=== PATIENT | female | born 1980 | race Caucasian/White ===

== ENCOUNTER 2020-12-10 09:12 | Outpatient (CLI) | payer BC, SELFPAY ==
--- NOTE | ~2020-12-10 | MM_ITS ---
EXAMINATION: MM screening bruna BI w mack HISTORY: Screening mammogram TECHNIQUE: Craniocaudal and mediolateral oblique 3-D tomosynthesis images were obtained and synthetic 2-D images were generated. CAD analysis was submitted and interpreted. COMPARISON: No prior mammogram is available for comparison at this institution. BREAST PARENCHYMAL COMPOSITION: There are scattered areas of fibroglandular density. FINDINGS: There is no evidence of suspicious mass, calcification, or architectural distortion to sugg est malignancy in either breast. There has been no suspicious interval change. IMPRESSION: 1. No mammographic evidence of malignancy. 2. Recommend routine screening mammography in one year. BI-RADS Category 1: Negative Reviewed, dictated and finalized at location A.
== END 2020-12-10 09:13 | disposition home or self-care (01) ==
LOC: ANHIMG 09:13
PROVIDERS: PCP Family Medicine; Visit Provider Obstetrics & Gynecology
DX: Z12.31 Encounter for screening mammogram for malignant neoplasm of breast (principal)
CPT/HCPCS: 77063; 77067

== ENCOUNTER 2021-09-20 13:17 | Outpatient (CLI) | payer OTHER, SELFPAY ==
--- NOTE | 2021-09-20 13:25 | ECHO_ITS ---
Patient Info Name: Jayna Martinez Age: 41 years : 1980 Gender: Female Ht: 68 in Wt: 148 lbs BSA: 1.80 m2 HR: 70 bpm BP: 110 / 68 mmHg Technical Quality: Good Exam Date: 09/20/2021 1:37 PM Exam Location: [facility] Patient Status: Outpatient Admit Date: 09/20/2021 Staff Ordering Physician: John Barraza DO Wirer Helper: Sierra Suh RDCS Attending Provider: John Barraza DO Referring Physician: Madi FRANCIS; Exam Type: CA echo doppler color flow Study Info Indications R00.2 - Palpitations Complete two-dimensional, color flow and Doppler transthoracic echocardiogram is performed. Summary 1. Complete two-dimensional, color flow and Doppler transthoracic echocardiogram is performed. 2. Left ventricular chamber dimension is normal. 3. Left ventricular systolic function is normal, estimated at 60-65%. 4. The left ventricular diastolic function is normal. 5. E/e' 6 is not elevated. 6. Global longitudinal strain is normal at -18.3%. 7. No pulmonary hypertension, estimated pulmonary arterial systolic pressure is 13 mmHg. Left Ventricle E/e' 6 is not elevated. Global longitudinal strain is normal at -18.3%. Left ventricular chamber dimension is normal. Left ventricular systolic function is normal, estimated at 60-65%. The left ventricular diastolic function is normal. Right Ventricle Right ventricular chamber dimension is normal. Right ventricular systolic function is normal. Left Atria Left atrial chamber dimension is normal. Right Atria Right atrial chamber dimension is normal. Aortic Valve The aortic valve is trileaflet. There is no aortic valve stenosis. There is no aortic valve regurgitation. Mitral Valve There is no mitral valve stenosis. There is no mitral valve regurgitation. Tricuspid Valve There is no tricuspid valve regurgitation. No pulmonary hypertension, estimated pulmonary arterial systolic pressure is 13 mmHg. Pericardium/Pleural There is no pericardial effusion. Inferior Vena Cava Normal inferior vena cava with >50% collapse upon inspiration consistent with normal right atrial pressure, 5 mmHg. Aorta The aortic root size at the sinus of Valsalva is normal. Left Ventricular Outflow Tract Name Value Normal LVOT 2D LVOT Diameter 2.0 cm LVOT Doppler LVOT Peak Gradient 4 mmHg LVOT Mean Gradient 3 mmHg LVOT VTI 19 cm LVOT VTI/AV VTI Ratio 1.1 LVOT Stroke Volume 57 ml LVOT CO 4.5 l/min LVOT CI 2.5 l/min/m2 Pulmonic Valve Name Value Normal RVOT Doppler RVOT Peak Gradient 1 mmHg PV Doppler
== END 2021-09-20 13:18 | disposition home or self-care (01) ==
LOC: ANHCARD 13:19
PROVIDERS: PCP Family Medicine; Visit Provider Internal Medicine Cardiovascular Disease
DX: R00.2 Palpitations (principal)
CPT/HCPCS: 93306

== ENCOUNTER 2021-11-03 07:33 | Outpatient (CLI) | payer OTHER, SELFPAY ==
--- NOTE | 2021-11-07 13:13 | WPDHOMESLEEP ---
Sleep Study - Home Unattended Date of Study: 11/03/21 Ordering Provider: John Barraza DO Interpreting Provider: China Herrmann DO Home Sleep Study Type: Watch PAT Height: 1.73 m Weight: 68.039 kg Body Mass Index: 22.8 Neck Circumference (inches): 13.5 Bath: 2 Reason for Sleep Study Sleep-onset and sleep-maintenance insomnia Sleep History The patient is a 41-year-old female with history of atrial fibrillation and palpitations that had a HSAT ordered by her engraver rubber for sleep disturbances. the patient states she has a difficult time falling asleep. When she is able to fall asleep, she can only sleep for a few hours. The patient denies awakening from sleep short of breath. She occasionally awakens at night with heartburn, belching or cough. She occasionally snores but it is never loud others complain. She constantly has trouble sleeping when she has a cold. She denies waking up gasping for air throughout the night. She denies having breathing problems at night observed by herself or others. She rarely sweats excessively at night. He frequently notices heart palpitations or irregular heartbeats during the night. He denies falling asleep during the day while driving. She denies having trouble at school or work due to sleepiness. She denies cataplexy. She will rarely feels unable to move when waking or falling asleep. She occasionally experiences vivid dreamlike scenes upon awakening asleep. She occasionally has nightmares. She occasionally has thoughts racing through mind. She rarely feels sad or depressed. She rarely has anxiety. She denies noticing parts of her body jerk. She denies kicking during the night. She denies having crawling and aching feelings in her legs as well as leg pain during the night. she denies grinding her teeth during sleep awakening with morning jaw pain. She denies being bothered by pain during the day and being awakened by pain during the night. She denies waking up feeling stiff in the morning with sore achy muscles. She occasionally wakes up with pain in the neck, spine and other joints. The patient states that her bedtime on both the weekdays and weekends varies. It typically takes her 2 hours to fall asleep on days that she does not work. On work days, she can fall asleep within 15-30 minutes. She wakes up 4-5 times throughout the night to use the restroom. She can fall back asleep within 20 minutes. On her work days, she will sleep from 8:30 a.m. to 3:00 p.m.. On her off days, she will sleep from 10:00 p.m. to 8:00 a.m.. She typically gets 4 to 5-1/2 hours of sleep per night. She will stay in bed for 20 minutes after waking up in the morning. She currently lives alone. 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 He does not consume any caffeinated beverages within 2 hours of bedtime. She does not engage in physical exercise before bedtime. She does not read or watch television before falling asleep. She will take naps in the afternoon or the evening they are refreshing. She does drink diet soda throughout the day. She denies tobacco, alcohol recreational drug use. [facility] Past Medical History Medical History Allergic rhinitis due to pollen Anemia Arthritis History of atrial fibrillation Palpitations with regular cardiac rhythm Scoliosis SVT (supraventricular tachycardia) Surgical History Surgical History H/O colectomy History of cardiac radiofrequency ablation 2019 History of cholecystectomy (~2010) Normal colonoscopy [place] teeth removed Family History Family History Mother Hypertension Family history of coronary artery disease Family history of glaucoma Family history of elevated blood lipids Family history of diabetes mellitus in first degree relative D
[2021-11-07 13:16] VITALS: BMI 22.8
== END 2021-11-04 09:58 | disposition home or self-care (01) ==
LOC: ANHCSM 07:34
PROVIDERS: PCP Family Medicine; Visit Provider Internal Medicine Cardiovascular Disease
DX: G47.10 Hypersomnia, unspecified (principal)
CPT/HCPCS: 95800

== ENCOUNTER 2021-12-19 14:03 | Outpatient (CLI) | payer OTHER, SELFPAY ==
--- NOTE | ~2021-12-19 | XR_ITS ---
EXAM: XR cervical spine 4-5V HISTORY: M54.2 - Cervicalgia COMPARISON: None available FINDINGS: Craniocervical association and atlantoaxial joint are normal. No prevertebral soft tissue swelling. Normal vertebral body heights. Very mild multilevel disc space narrowing in the lower cervi paty spine. Reversed lordosis as can be seen with muscle spasm or positioning, otherwise normal verteb ral body alignment. Normal facets and posterior elements. IMPRESSION: Neck muscle spasm versus positional artifact. Minimal degenerative disc disease in the lower cervical spine. Reviewed, dictated and finalized at location K.
--- NOTE | ~2021-12-19 | XR_ITS ---
EXAM: XR lumbar spine min 4V HISTORY: M54.9 - Dorsalgia, unspecified COMPARISON: None available FINDINGS: 5 nonrib-bearing lumbar-type vertebral bodies. Pedicles intact. Normal vertebral body alig nment. Vertebral body heights preserved. Disc spaces maintained. Normal facets and posterior elements . Cholecystectomy clips. Normal SI joints. IMPRESSION: Normal lumbar spine radiograph findings. Reviewed, dictated and finalized at location K.
== END 2021-12-19 14:04 | disposition home or self-care (01) ==
PROVIDERS: PCP Family Medicine; Visit Provider Physician Assistant
DX: M47.812 Spondylosis without myelopathy or radiculopathy, cervical region (principal)
CPT/HCPCS: 72050; 72110

== ENCOUNTER 2021-12-29 06:33 | Outpatient (CLI) | payer OTHER, SELFPAY ==
[2021-12-29 07:44] LABS: Alanine Aminotransferase 13 U/L (4-35); Albumin Level 4.8 g/dL (3.5-5.1); Alkaline Phosphatase 51 U/L (38-126); Anion Gap 8 mmol/L (8-16); Aspartate Amino Transferase 22 U/L (14-36); Bilirubin,Total 0.7 mg/dL (0.2-1.3); Blood Urea Nitrogen 11 mg/dL (7-17); Carbon Dioxide 25 mmol/L (22-30); Chloride 104 mmol/L (98-107); Cholesterol 146 mg/dL (0-200); Estimated Glomerular Filt Rate > 60; Glucose 99 mg/dL (65-110); HDL Direct 92 mg/dL; Potassium 3.9 mmol/L (3.4-5.0); Sodium 137 mmol/L (137-145); Triglycerides < 30 mg/dL (<150)
[2021-12-29 08:26] LABS: LDL Cholesterol Direct < 30 mg/dL
[2022-01-01 11:55] LABS: Vitamin D 1,25 (OH)2 Total 50 pg/mL (18-72); Vitamin D2 1,25 (OH)2 <8 pg/mL; Vitamin D3 1,25 (OH)2 50 pg/mL
== END 2021-12-29 06:34 | disposition home or self-care (01) ==
LOC: ANHLAB 06:36
PROVIDERS: PCP Family Medicine; Visit Provider Physician Assistant
DX: E55.9 Vitamin D deficiency, unspecified (principal); Z13.1 Encounter for screening for diabetes mellitus; Z00.00 Encounter for general adult medical examination without abnormal findings; Z13.220 Encounter for screening for lipoid disorders
CPT/HCPCS: 36415; 80053; 80061; 82652

== ENCOUNTER 2022-10-13 09:25 | Outpatient (CLI) | payer OTHER, SELFPAY ==
[2022-10-13 10:10] LABS: Hematocrit 41.1 % (37.0-47.0); Hemoglobin 13.4 g/dL (12.0-15.0); Mean Corpuscular HGB Conc 32.6 g/dl (32-36); Mean Corpuscular Hemoglobin 29.3 pg (26-34); Mean Corpuscular Volume 89.7 fl (80-100); Mean Platelet Volume 11.6 fl (7.4-10.4); Platelet Count Result 266 k/mm3 (150-375); Red Blood Count 4.58 M/mm3 (4.2-5.4); Red Cell Distribution Width 13.3 % (11.5-14.5); White Blood Count 7.8 K/mm3 (4.5-10.0)
[2022-10-13 10:22] LABS: Alanine Aminotransferase 18 U/L (6-35); Albumin Level 4.4 g/dL (3.5-5.1); Alkaline Phosphatase 47 U/L (38-126); Anion Gap 5 mmol/L (8-16); Aspartate Amino Transferase 21 U/L (14-36); Bilirubin,Total 0.6 mg/dL (0.2-1.3); Blood Urea Nitrogen 11 mg/dL (7-17); Calcium 8.6 mg/dL (8.4-10.2); Carbon Dioxide 29 mmol/L (22-30); Chloride 104 mmol/L (98-107); Estimated Glomerular Filt Rate > 60; Glucose 106 mg/dL (65-110); Potassium 3.8 mmol/L (3.4-5.0); Sodium 138 mmol/L (137-145)
[2022-10-13 11:14] LABS: Free T4 Free Thyroxine 1.18 ng/mL (0.78-2.19)
[2022-10-18 15:33] LABS: Vitamin D 1,25 (OH)2 Total 49 pg/mL (18-72); Vitamin D2 1,25 (OH)2 <8 pg/mL; Vitamin D3 1,25 (OH)2 49 pg/mL
== END 2022-10-13 09:26 | disposition home or self-care (01) ==
LOC: ANHLAB 09:28
PROVIDERS: PCP Family Medicine; Visit Provider Physician Assistant
DX: E55.9 Vitamin D deficiency, unspecified (principal); Z13.1 Encounter for screening for diabetes mellitus; R53.83 Other fatigue; E53.8 Deficiency of other specified B group vitamins; D64.9 Anemia, unspecified
CPT/HCPCS: 36415; 80053; 82607; 82652; 84439; 84443; 85027

== ENCOUNTER 2023-10-25 16:06 | Outpatient (CLI) | payer OTHER, SELFPAY ==
--- NOTE | ~2023-10-25 | XR_ITS ---
EXAMINATION: XR abdomen/kub 1V DATE: 10/25/2023 16:19 INDICATION: Unspecified abdominal pain. TECHNIQUE: A supine view of the abdomen on 2 radiographs was obtained. COMPARISON: CT abdomen and pelvis 04/20/2010 FINDINGS: There are no dilated loops of bowel. There is a small volume of stool in the colon. Surgica l clips in the right upper quadrant are likely from cholecystectomy. There is a phlebolith in left pe lvis. IMPRESSION: 1. Nonobstructive bowel gas pattern. Reviewed, dictated and finalized at location E. PING MACHINE OPERATOR
[2023-10-25 16:42] LABS: Hematocrit 39.2 % (37.0-47.0); Hemoglobin 12.6 g/dL (12.0-15.0); Mean Corpuscular HGB Conc 32.1 g/dl (32-36); Mean Corpuscular Volume 90.3 fl (80-100); Mean Platelet Volume 11.1 fl (7.4-10.4); Platelet Count Result 276 k/mm3 (150-375); Red Blood Count 4.34 M/mm3 (4.2-5.4); Red Cell Distribution Width 12.8 % (11.5-14.5); White Blood Count 10.3 K/mm3 (4.5-10.0)
[2023-10-25 17:40] LABS: Alanine Aminotransferase 12 U/L (6-35); Albumin Level 4.1 g/dL (3.5-5.1); Alkaline Phosphatase 47 U/L (38-126); Anion Gap 7 mmol/L (8-16); Aspartate Amino Transferase 26 U/L (14-36); Bilirubin,Total 0.3 mg/dL (0.2-1.3); Blood Urea Nitrogen 10 mg/dL (7-17); Calcium 8.9 mg/dL (8.4-10.2); Carbon Dioxide 27 mmol/L (22-30); Chloride 102 mmol/L (98-107); Estimated Glomerular Filt Rate > 60; Glucose 112 mg/dL (65-110); Lipase 90 U/L (23-300); Potassium 3.6 mmol/L (3.4-5.0); Sodium 136 mmol/L (137-145)
[2023-10-25 18:27] LABS: Free T4 Free Thyroxine 1.04 ng/mL (0.78-2.19)
== END 2023-10-25 16:07 | disposition home or self-care (01) ==
LOC: ANHIMG 16:09
PROVIDERS: PCP Family Medicine; Visit Provider Physician Assistant
DX: R10.9 Unspecified abdominal pain (principal); D64.9 Anemia, unspecified; Z13.1 Encounter for screening for diabetes mellitus; R53.83 Other fatigue
CPT/HCPCS: 36415; 74018; 80053; 83690; 84439; 84443; 85027

== ENCOUNTER 2024-04-29 12:14 | Outpatient (CLI) | payer OTHER, SELFPAY ==
--- NOTE | ~2024-04-29 | XR_ITS ---
EXAMINATION: XR lumbar spine min 4V DATE: 04/29/2024 12:36 INDICATION: Dorsalgia. TECHNIQUE: 5 views of lumbar spine were obtained. COMPARISON: Lumbar spine radiographs 12/19/21 FINDINGS: There is 9 degrees levocurvature of thoracolumbar spine. Vertebral body heights are normal. Intervertebral disc heights are normal. The facet joints are unremarkable. Surgical clips in the rig ht upper quadrant are likely from cholecystectomy. IMPRESSION: 1. Thoracolumbar levocurvature. Reviewed, dictated and finalized at location A.
== END 2024-04-29 12:15 | disposition home or self-care (01) ==
LOC: ANHIMG 12:16
PROVIDERS: PCP Family Medicine; Visit Provider Physician Assistant Medical
DX: M54.9 Dorsalgia, unspecified (principal); M43.9 Deforming dorsopathy, unspecified
CPT/HCPCS: 72110

== ENCOUNTER 2024-08-07 07:32 | Outpatient (CLI) | payer BC, SELFPAY ==
[2024-08-07 08:11] LABS: Basophils Percent Auto 0.6 % (0.2-1.2); Eosinophils Absolute Auto 0.1 K/mm3 (0-0.3); Eosinophils Percent Auto 1.3 % (0-4.4); Hematocrit 39.3 % (37.0-47.0); Immature Granulocyte Absolute 0.05 K/mm3 (0.00-0.031); Immature Granulocyte Percent A 0.7 % (0-0.5); Lymphocytes Absolute Auto 2.24 K/mm3 (0.9-3.2); Lymphocytes Percent Auto 33.4 % (18.3-44.2); Mean Corpuscular HGB Conc 33.1 g/dl (32-36); Mean Corpuscular Hemoglobin 30.4 pg (26-34); Mean Platelet Volume 11.3 fl (7.4-10.4); Monocytes Absolute Auto 0.6 K/mm3 (0.1-0.6); Monocytes Percent Auto 9.1 % (2.6-8.5); Neutrophils Absolute Auto 3.7 K/mm3 (1.3-6.7); Neutrophils Percent Auto 54.9 % (45.5-73.1); Platelet Count Result 270 k/mm3 (150-375); Red Blood Count 4.27 M/mm3 (4.2-5.4); Red Cell Distribution Width 13.2 % (11.5-14.5); White Blood Count 6.7 K/mm3 (4.5-10.0)
[2024-08-07 08:42] LABS: Alanine Aminotransferase 13 U/L (6-35); Albumin Level 4.2 g/dL (3.5-5.1); Alkaline Phosphatase 51 U/L (38-126); Anion Gap 3 mmol/L (4-12); Aspartate Amino Transferase 22 U/L (14-36); Bilirubin,Total 0.7 mg/dL (0.2-1.3); Blood Urea Nitrogen 12 mg/dL (7-17); Calcium 8.6 mg/dL (8.4-10.2); Carbon Dioxide 30 mmol/L (22-30); Chloride 105 mmol/L (98-107); Cholesterol 138 mg/dL (0-200); Estimated Glomerular Filt Rate > 60; Glucose 94 mg/dL (65-110); HDL Direct 82 mg/dL; Potassium 3.7 mmol/L (3.4-5.0); Sodium 138 mmol/L (137-145); Triglycerides 31 mg/dL (<150)
[2024-08-07 09:23] LABS: LDL Cholesterol Direct < 30 mg/dL
[2024-08-07 09:47] LABS: Iron 115 ug/dL (37-170)
[2024-08-07 09:59] LABS: Percent Iron Saturation 37 % (20-50)
[2024-08-07 10:01] LABS: Vitamin D 25 Hydroxy 26.1 ng/mL
[2024-08-07 10:05] LABS: Free T4 Free Thyroxine 1.17 ng/dL (0.78-2.19)
[2024-08-07 10:21] LABS: Hemoglobin A1C 5.6 % (<5.7)
[2024-08-08 08:04] LABS: FSH 6.8 mIU/mL; LH 5.8 mIU/mL
== END 2024-08-07 07:33 | disposition home or self-care (01) ==
PROVIDERS: PCP Family Medicine; Visit Provider Student in an Organized Health Care Education/Training Program
DX: R73.09 Other abnormal glucose (principal); N92.0 Excessive and frequent menstruation with regular cycle; R53.83 Other fatigue; Z13.1 Encounter for screening for diabetes mellitus
CPT/HCPCS: 36415; 80053; 80061; 82306; 82728; 83001; 83002; 83036; 83540; 83550; 84439; 84443; 85025

== ENCOUNTER 2024-11-10 00:13 | Emergency (ER) | payer BC, SELFPAY ==
[2024-11-10 00:15] VITALS: BP 124/69; PULSE 96; RESP 20; TEMP 36.6; O2SAT 100
[2024-11-10] MEDS: PROCHLORPERAZINE EDISYLATE 10 MG/2 ML VIAL IM (00:27)
--- NOTE | 2024-11-10 00:27 | ED_ITS ---
HPI - Nausea/Vomiting/Diarrhea General Chief complaint: Nausea/Vomiting/Diarrhea Stated complaint: N/V/D SINCE 1700 Time Seen by Provider: 11/10/24 00:15 History of Present Illness HPI Narrative: Patient was started feels slightly unwell at work started having nausea, vomiting, diarrhea, nonstop. Abdominal cramping when she is dry heaving. Related Data Allergies Allergy/AdvReac Type Severity Reaction Status Date / Time No Known Allergies Allergy Verified 11/10/24 00:21 Review of Systems 2 Review of Systems: All systems reviewed & are unremarkable except as noted in HPI and below PMFSH Past Medical History Medical History (Updated 11/10/24 @ 02:49 by Yadira Mckeon MD) Anxiety Depression COVID-19 Scoliosis Anemia Arthritis Allergic rhinitis due to pollen Palpitations with regular cardiac rhythm SVT (supraventricular tachycardia) History of atrial fibrillation Surgical History Surgical History History of cardiac radiofrequency ablation 2020 Normal colonoscopy [place] teeth removed H/O colectomy History of cholecystectomy (~2010) Family History Family History Mother Hypertension Family history of elevated blood lipids Family history of diabetes mellitus in first degree relative Diabetes mellitus Family history of congestive heart failure Heart problem Kidney disease Hyperlipemia Heart disease Family history of coronary artery disease Family history of glaucoma Father Family history of diabetes mellitus in first degree relative Hypertension Cerebrovascular accident Diabetes mellitus Heart problem Hyperlipemia Grandparent Family history of malignant neoplasm of urinary bladder Family history of congestive heart failure Heart disease Family history of coronary artery disease Diabetes mellitus Hypertension Anxiety and depression Sibling Skin cancer Hypertension Social History Social History (Updated 10/16/24 @ 08:08 by Meggan Donaldson MA) Social History: Living alone. Working. Smoking status: Never smoker Alcohol intake: never Substance use: never Substance use type: does not use Do You Feel Safe in your Home?: Yes Lack of Transportation: No Lack of Food: Never True Current Housing: I Have Housing Concerned About Future Housing: No Difficulty Paying Gas/Electric Bills: No Difficulty Paying for Meds: No Currently Unemployed: No Education: Trade/Vocational Certificate Difficulty w/ Childcare or Family Care: No Living arrangements: alone Occupation/Education: occupation Additional occupation/education comments: Works at [employer] Re[employer] Gender identity (if verbalized by the patient): Female Sexual Orientation (if Verbalized by the Patient): Straight or Heterosexual Spiritual care concerns: No Exam 2 Narrative: EXAMINATION OF ORGAN SYSTEMS/BODY AREAS: Constitutional: Vital signs per nursing GENERAL: Appearing slightly nauseous HEAD: Normal with no signs of head trauma. EYES: EOMI, conjunctiva normal ENT: Hearing grossly intact LUNGS: Nonlabored breathing. HEART: [Regular rate and rhythm] ABD: [Soft], [nontender to palpation] EXT: Normal range of motion SKIN: [No rashes or lesions.] NEURO: [Alert and oriented x 3. No gross focal sensory or strength deficits.] PSYCH: Normal affect Course Vital Signs Vital signs: Vital Signs Temperature 97.8 F 11/10/24 00:15 Pulse Rate 96 11/10/24 00:15 Respiratory Rate 20 11/10/24 00:15 Blood Pressure 124/69 11/10/24 00:15 Pulse Oximetry 100 11/10/24 00:15 Oxygen Delivery Room Air 11/10/24 00:15 Temperature 97.8 F 11/10/24 00:15 Pulse Rate 86 11/10/24 02:17 Respiratory Rate 20 11/10/24 02:17 Blood Pressure 113/68 11/10/24 02:17 Pulse Oximetry 97 11/10/24 02:17 Oxygen Delivery Room Air 11/10/24 00:15 MDM - Nausea/Vomiting/Diarrhea MDM Narrative Medical decision making narrative: 44-year-old female presenting with nausea, vomiting, diarrhea since tonight, no abdominal pain except for when she is throwing up, abdomen soft nontender, I did obtain EKG as she was requiring several rounds of antiemetics, EKG on my independent interpretation shows normal sinus rhythm with short VA interval, rate 92, VA 119, QRS 102, QTC 393, no ST elevations depressions or signs of acute arrhythmia or ischemia. Patient already got Zofran and fluids with EMS but still nauseous, given a dose of Reglan here and Pepto-Bismol, still dry heaving so given small dose of Haldol. On re-evaluation, she feels much better. No longer nauseous. Getting her 2nd round of IV fluids. Labs within acceptable limits other than slightly elevated white count which I suspect is from the nausea, vomiting, diarrhea, she does have some ketones in her urine likely consistent with dehydration. On re-eval feeling better; no new abd pain, no further emesis here. Would like to go home at this time, will give return precautions and have her f/u with PCP, pt agreeable to this plan Lab Data 11/10/24 00:42 11/10/24 00:42 Labs: Lab Results 11/10/24 11/10/24 Range/Units 00:42 01:29 WBC 15.9 H (4.5-10.0) K/mm3 RBC 4.17 L (4.2-5.4) M/mm3 Hgb 12.2 (12.0-15.0) g/dL Hct 37.2 (37.0-47.0) % MCV 89.2 (80-100) fl MCH 29.3 (26-34) pg MCHC 32.8 (32-36) g/dl RDW 13.2 (11.5-14.5) % Plt Count 206 (150-375) k/mm3 MPV 11.6 H (7.4-10.4) fl Immature Gran % (Auto) 0.5 (0-0.5) % Neut % (Auto) 91.5 H (45.5-73.1) % Lymph % (Auto) 2.8 L (18.3-44.2) % [place] % (Auto) 4.8 (2.6-8.5) % Eos % (Auto) 0.1 (0-4.4) % Baso % (Auto) 0.3 (0.2-1.2) % Lymph # (Auto) 0.44 L (0.9-3.2) K/mm3 [place] # (Auto) 0.8 H (0.1-0.6) K/mm3 Eos # (Auto) 0.0 (0-0.3) K/mm3 Baso # (Auto) 0.0 (0.0-0.1) K/mm3 Abs Immat Gran (auto) 0.08 H (0.00-0.031) K/mm3 Absolute Neuts (auto) 14.6 H (1.3-6.7) K/mm3 Absolute Nucleated RBC 0.000 (0.0-0.012) K/mm3 Nucleated RBC % 0.0 (0.0-0.2) % Sodium 136 L (137-145) mmol/L Potassium 3.6 (3.4-5.0) mmol/L Chloride 107 (98-107) mmol/L Carbon Dioxide 17 L (22-30) mmol/L Anion Gap 12 (4-12) mmol/L BUN 15 (7-17) mg/dL Creatinine 0.89 (0.7-1.0) mg/dL Estim Creat Clear Calc 71 ml/min Estimated GFR > 60 (59 - ) Glucose 116 H (65-110) mg/dL Calcium 8.0 L (8.4-10.2) mg/dL Total Bilirubin 0.9 (0.2-1.3) mg/dL AST 19 (14-36) U/L ALT 15 (6-35) U/L Alkaline Phosphatase 44 (38-126) U/L Total Protein 7.0 (6.3-8.2) g/dL Albumin 3.8 (3.5-5.1) g/dL Lipase 66 (23-300) U/L Urine Color Yellow (Yellow) Urine Appearance Clear (Clear) Urine pH 6.0 (5.0-9.0) Ur Specific [place] 1.021 (1.001-1.035) Urine Protein Negative (Negative) mg/dL Urine Glucose (UA) Negative (Negative) mg/dL Urine Ketones 3+ H (Negative) mg/dL Ur Blood (Man) 1+ H (Negative) Urine Nitrate Negative (Negative) Urine Bilirubin Negative (Negative) Urine Urobilinogen 0.2 (<2.0) mg/dL Leukocyte Esterase Rfl Negative (Negative) ROSALIO/UL Urine RBC 0-2 (0-2) /hpf Urine WBC 0-5 (0-3) /hpf Ur Squamous Epith Cells None seen (Few) /hpf Urine Bacteria None seen /hpf Urine Casts 0-2 Discharge Plan Discharge Clinical Impression: Nausea, vomiting, and diarrhea Patient Disposition: Home, Self-Care Condition: Stable Instructions: Acute Nausea and Vomiting (ED), Acute Diarrhea (ED) Additional Instructions: Please follow up with your doctor; you can always return for any further issues especially if you have any abdominal pain, nausea/vomiting, or anything else concerning. Patient Language: Urdu Prescriptions: New ondansetron 4 mg tablet,disintegrating 4 mg PO Q6H PRN (Reason: nausea and vomiting) Qty: 14 0RF No Action ondansetron 4 mg tablet,disintegrating 4 mg PO Q8H Qty: 14 0RF trazodone 50 mg tablet 50 mg PO QHS PRN (Reason: insomnia) Qty: 30 6RF Follow-up/Referrals: UNKNOWN,DOCTOR [Non-Staff] -
--- NOTE | 2024-11-10 00:31 | PC.NURSE ---
Patient had 1L NS bolus started en route by EMS. VORB per to let 1L NS bolus finish to infuse.
[2024-11-10 00:46] VITALS: BP 121/73; PULSE 93; RESP 20; O2SAT 100
--- OUTSIDE RECORDS SUMMARY | 2024-11-10 00:50 | XMS_ITS | Referral Summary ---
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 She has not experienced recurrence of tachycardia. She has palpitations that may be related to her documented ventricular ectopy. We discussed the benign nature of this problem, and she would like to continue with expectant, nonpharmacologic management. The patient will follow-up with me in 12 months for an office visit and twelve- lead ECG. Assessment & Plan (04/27/2020 3:46 PM CDT): The patient has highly symptomatic recurrent paroxysmal atrial fibrillation. We discussed options for management, and the patient is not in favor of antiarrhythmic drug therapy. She previously discussed ablation with her cisco certified internetwork expert, and is interested in this route. We discussed the rationale for atrial fibrillation ablation, including the steps involved in ablation. I detailed the risks of the procedure, including vascular injury/hematoma, myocardial injury/perforation, stroke, myocardial infarction, pulmonary vein stenosis, thermal esophageal injury, phrenic nerve injury, and . I estimated a 70-80% chance of freedom from long-term atrial arrhythmia, and the patient understands that occasionally a second procedure is necessary. Anticoagulation management encounter 04/27/2020 Assessment & Plan (04/27/2020 3:47 PM CDT): The patient has a [id number] score of 1 - for female gender. This projects an annualized risk of stroke approximately 0%. She does understand that if ablation is pursued, she will need to be on anticoagulation for least 1 month post procedure. We will make the appropriate arrangements if the patient wishes to proceed. Atrial tachycardia Assessment & Plan (03/13/2022 5:42 PM CDT): Eighteen months status post catheter ablation of right atrial tachycardia and CTI dependent right atrial flutter. Doing well, without recurrence. We will continue to monitor and follow closely, and manage new / recurrent arrhythmia expectantly. The patient will follow-up with me in 12 months for an office visit and twelve- lead ECG. 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 Gender Identity Not on file Sexual Orientation Not on file Last Filed Vital Signs Vital Sign Reading Time Taken Comments Blood Pressure 95/71 03/09/2022 2:08 PM CDT Pulse 71 03/09/2022 2:08 PM CDT Temperature 36.9 C (98.4 F) 08/12/2020 8:40 AM PARI MUTUEL TICKET CASHIER Respiratory Rate 18 03/09/2022 2:08 PM CDT Oxygen Saturation 100% 08/12/2020 8:40 AM PARI MUTUEL TICKET CASHIER Inhaled Oxygen Concentration - - Weight 69.4 kg (153 lb) 03/09/2022 2:08 PM CDT Height 172.7 cm (5' 8 ) 03/09/2022 2:08 PM CDT Body Mass Index 23.26 03/09/2022 2:08 PM CDT Plan of Treatment Not on file Medical Devices Implanted Type Area Radio Machinist Device Identifier Shelf Expiration Date Model / Serial / Lot [employer] [id number] Vascade 6/7fr Bioabsorbable Vascular System Compression Collagen - [id number] - [id number] Implanted:Qty: 1 on 08/11/2020 by Josh Tyler MD at [facility] [employer] 06/15/2022 [id number] / [id number] / [id number] [employer] [id number] System 6-12fr Mvp Venous Closure Vascade - [id number] - [id number] Implanted:Qty: 1 on 08/11/2020 by Josh Tyler MD at [facility] [employer] [facility] 06/28/2022 [id number] / [id number] / [id number] [employer] [id number] System 6-12fr Mvp Venous Closure Vascade - [id number] - [id number] Implanted:Qty: 1 on 08/11/2020 [facility] 06/28/2022 [id number] / [id number] / [id number] [address] [place] [address] [facility] H[facility]/PPO Address: [address] [id number] [place] [address] Care Teams Welding Machine Tender Relationship Specialty Start Date End Date Riya Cormier MD PCP - General Family Medicine 05/22/19
--- OUTSIDE RECORDS SUMMARY | 2024-11-10 00:50 | XMS_ITS | Clinical Summary ---
Author Organization [facility] Address [address] [place] [address] Care Team Providers Care Kiln Feeder Name Role Phone Riya Cormier MD Primary Care Provider [phone] Allergies No known active allergies Medications busPIRone [...] therapy. She previously discussed ablation with her farm equipment service technician, and is interested in this route. We [...] 3:47 PM CDT): The patient has a ODY2TO9-WHEs score of 1 - for female gender. [...] an office visit and twelve- lead ECG. Surgical History Surgery Date Site/Laterality Comments GALLBLADDER SURGERY 09/03/2010 - 09/02/2011 N/A Medical History Medical History Date Comments Atrial fibrillation (HCC) Supraventricular tachycardia Family History Medical History Relation Name Comments Heart disease Father Heart disease Mother Relation Name Status Comments Father Alive stroke Mother (Age 75) CHF Social History Tobacco Use Types Packs/Day Years Used Date Smoking Tobacco: Never Smokeless Tobacco: Never Personal Safety Answer Date Recorded Getting School Help Needed Not on file 11/17 Comments Unknown Sex and Gender Information Value Date Recorded Sex Assigned at Not on file Legal Sex Female 4: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 CAR OPERATOR Gender Identity Not on file Sexual Orientation Not on file Obstetrics History Last Filed Vital Signs Vital Sign Reading Time Taken Comments Blood Pressure 95/71 03/09/2022 2:08 PM CDT Pulse 71 03/09/2022 2:08 PM CDT Temperature 36.9 C (98.4 F) 08/12/2020 8:40 AM DERRICK CAR OPERATOR Respiratory Rate 18 03/09/2022 2:08 PM CDT Oxygen Saturation 100% 08/12/2020 8:40 AM DERRICK CAR OPERATOR Inhaled Oxygen Concentration - - Weight 69.4 kg (153 lb) 03/09/2022 2:08 PM CDT Height 172.7 cm (5' 8 ) 03/09/2022 2:08 PM CDT Body Mass Index 23.26 03/09/2022 2:08 PM CDT Plan of Treatment Health Maintenance Due Date Last Done Comments Breast Cancer Screening-Mammogram 1980 Cervical Cancer Screening 1980 Depression Screening 1980 Hepatitis C Screening 1980 DTaP/Tdap/Td Vaccine (1 - Tdap) 1991 Varicella Vaccines (1 of 2 - 13+ 2-dose series) 1993 Hepatitis B Screening 1998 Regular Well Visit/Exam 18-64 1998 Influenza Vaccine (#1) 2024 05/18/2013 HPV Vaccines Aged Out No longer eligi ble based on patient's age to complete this topic Pneumococcal vaccine <65 Aged Out No longer eligible based on patient's age to complete this topic Medical Devices Implanted Type Area Superintendent [employer] Device Identifier Shelf Expiration Date Model / Serial / Lot [employer] Inc [id number] Vascade 6/7fr Bioabsorbable Vascular System Compression Collagen - [id number] - [id number] Implanted:Qty: 1 on 08/11/2020 by Josh Tyler MD at [facility] [employer] 06/15/2022 700-580I-0 5U / [id number] / [id number] [employer] [id number] System 6-12fr Mvp Venous Closure Vascade - [id number] - [id number] Implanted:Qty: 1 on 08/11/2020 by Josh Tyler MD at [facility] [employer] 06/28/2022 800-612C-1 0U / [id number] [id number] / [id number] [id number] [employer] [id number] System 6-12fr Mvp Venous Closure Vascade - [id number] - [id number] Implanted:Qty: 1 on 08/11/2020 by Josh Tyler MD at [facility] [employer] 06/28/2022 800-612C-1 0U / [id number] / [id number] [id number] Insurance [facility] HMO/PPO Address: [address] [address] Care Teams Kiln Feeder Relationship Specialty Start Date End Date Riya Cormier MD PCP - General Family Medicine 05/22/19
--- OUTSIDE RECORDS SUMMARY | 2024-11-10 00:50 | XMS_ITS | Continuity of Care Document ---
Author Organization [facility] Address [address] [place] [address] [place] [address] Phone Care Team Providers Care Polishing Machine Operator Helper Name Role Phone Menjivar OD, Bereket Unavailable Unavailable Procedures Procedure Date Contact Lens Check Office/outpatient Visit, Est Eye Exam Established Pt Contact Lens Check Contact Lens Check Contact Lens Fit, Med Superv, Level 1 Ju Eye Exam & Treatment Refraction Advance Directives Directive Yes / No Effective Date File Name No Information Encounters Encounter Description Practice Location Reason(s) For Visit Diagnoses Date Provider Providers Copied on Encounter [facility], [address] [place] [address] [address], [place], [place], [id number], tel:[phone] [facility] No Information Apr-2 6-201 0 Menjivar OD Bereket. [address] , [address], [place], [place], [facility], . tel:[phone] Office/outpat ient Visit, Est [facility], [address] [place] [address] [address], [place], [place], [id number], [place] tel:[phone] [facility] No Information Apr-2 0-201 0 Menjivar OD Bereket. [address] , [address], [place], [place], [facility], . tel:[phone] [facility], [address] [place] [address] [address], [place], [place], [id number], [place] tel:[phone] [facility] No Information Apr-1 3-201 0 Menjivar OD Bereket. [address] , [address], [place], [place], [facility], . tel:[phone] [facility], [address] [place] [address] [address], [place], [place], [id number], tel:[phone] [facility] No Information Apr-1 2-201 0 Menjivar OD Bereket. [address] , [address], [place], [place], [facility], [place]. tel:[phone] [facility], [address] [place] [address] [address], [place], [place], [id number], tel:[phone] [facility] No Information Apr-0 6-201 0 Menjivar OD Bereket. [address] , [address], [place], [facility], . tel:[phone] [facility], [address] [place] [address] [address], [place], [place], [id number], tel:[phone] [facility] No Information Mar-3 0-201 0 Menjivar OD Bereket. [address] , [address], [place], [facility], . tel:[phone] [facility], [address] [place] [address] [address], [place], [place], [id number], tel:[phone] [facility] No Information 4-201 0 Menjivar OD Bereket. [address] , [address], [place], [place], [facility], . tel:[phone] Family History Family Member Type Diagnosis Age At Onset No Information Payers Payer name Insurance type Covered democrat ID Authoriza tion(s) No Information Social History Type Description Quantity Date Captured Comments Sex Female Smoking Status No Information Chief Complaint And Reason For Visit No Information Reason For Referral Reason For Referral No Information History Of Present Illness Encounter Date Complaint History Of Prese nt Illness No Information Functional Status Date Functional Assessmen t No Information Instructions Date Instruction Additional Infor mation No Information Assessments Type Assessment Date No Information Patient Care Teams Name Effective Dates (start - stop) Status Members No Information
[2024-11-10 00:57] LABS: Basophils Percent Auto 0.3 % (0.2-1.2); Eosinophils Percent Auto 0.1 % (0-4.4); Hematocrit 37.2 % (37.0-47.0); Hemoglobin 12.2 g/dL (12.0-15.0); Immature Granulocyte Absolute 0.08 K/mm3 (0.00-0.031); Immature Granulocyte Percent A 0.5 % (0-0.5); Lymphocytes Absolute Auto 0.44 K/mm3 (0.9-3.2); Lymphocytes Percent Auto 2.8 % (18.3-44.2); Mean Corpuscular HGB Conc 32.8 g/dl (32-36); Mean Corpuscular Hemoglobin 29.3 pg (26-34); Mean Corpuscular Volume 89.2 fl (80-100); Mean Platelet Volume 11.6 fl (7.4-10.4); Monocytes Absolute Auto 0.8 K/mm3 (0.1-0.6); Monocytes Percent Auto 4.8 % (2.6-8.5); Neutrophils Absolute Auto 14.6 K/mm3 (1.3-6.7); Neutrophils Percent Auto 91.5 % (45.5-73.1); Platelet Count Result 206 k/mm3 (150-375); Red Blood Count 4.17 M/mm3 (4.2-5.4); Red Cell Distribution Width 13.2 % (11.5-14.5); White Blood Count 15.9 K/mm3 (4.5-10.0)
[2024-11-10 01:03] LABS: Alanine Aminotransferase 15 U/L (6-35); Albumin Level 3.8 g/dL (3.5-5.1); Alkaline Phosphatase 44 U/L (38-126); Anion Gap 12 mmol/L (4-12); Aspartate Amino Transferase 19 U/L (14-36); Bilirubin,Total 0.9 mg/dL (0.2-1.3); Blood Urea Nitrogen 15 mg/dL (7-17); Carbon Dioxide 17 mmol/L (22-30); Chloride 107 mmol/L (98-107); Estimated CRCL calculation 71 ml/min; Estimated Glomerular Filt Rate > 60; Glucose 116 mg/dL (65-110); Lipase 66 U/L (23-300); Potassium 3.6 mmol/L (3.4-5.0); Sodium 136 mmol/L (137-145)
[2024-11-10] MEDS: BISMUTH SUBSALICYLATE 262 MG CHEWABLE TABLET 524 MG PO (01:26)
[2024-11-10 01:41] LABS: Add Urine Microscopic? YES; Appearance Urine Clear (Clear); Bacteria Urine None Seen /hpf; Bilirubin Urine Negative (Negative); Blood Urine 1+ (Negative); Color Urine Yellow (Yellow); Glucose Urine UA Negative (Negative); Ketones Urine 3+ mg/dL (Negative); Leukocyte Esterase Ur Negative LEU/UL (Negative); Nitrate Urine Negative (Negative); Non Pathogenic Casts 0-2; Protein Urine Negative (Negative); RBC Urine 0-2 /hpf (0-2); Specific Grav Ur 1.021 (1.001-1.035); Squamous Epithelial Cell Urine None Seen /hpf (Few); Urobilinogen Urine 0.2 mg/dL (<2.0); WBC Urine 0-5 /hpf (0-3)
--- NOTE | 2024-11-10 01:44 | ECG_ITS ---
Test Date: 2024-11-10 01:55:00 Measurements Intervals [place] Rate: 92 P: 57 FL: 119 QRS: 28 QRSD: 102 T: 47 QT: 343 QTc: 426 Interpretive Statements SINUS RHYTHM NONSPECIFIC T-WAVE ABNORMALITY No previous ECG available for comparison Electronically Signed On 11-10-2024 11:33:55 CDT by Uzair Jarrett M.D.
[2024-11-10 01:48] VITALS: BP 126/63; PULSE 97; RESP 18; O2SAT 100
--- NOTE | 2024-11-10 01:48 | PC.NURSE ---
Patient states her nausea is worse after pepto administration. ERP notified, orders being placed.
[2024-11-10] MEDS: HALOPERIDOL LACTATE 5 MG/ML VIAL 2.5 MG IV PUSH (01:57)
[2024-11-10 02:17] VITALS: BP 113/68; PULSE 86; RESP 20; O2SAT 97
[2024-11-10] MEDS: LACTATED RINGERS 1,000 ML 999 ML IV CONT (02:19)
[2024-11-10 03:19] VITALS: BP 106/63; PULSE 92; RESP 17; O2SAT 97
[2024-11-10 03:57] VITALS: BP 109/61; PULSE 100; RESP 17; O2SAT 97
== END 2024-11-10 04:03 | disposition home or self-care (01) ==
PROVIDERS: Emergency Provider Emergency Medicine; PCP Family Medicine
DX: R11.2 Nausea with vomiting, unspecified (principal); R19.7 Diarrhea, unspecified; I48.91 Unspecified atrial fibrillation; M19.90 Unspecified osteoarthritis, unspecified site; Z86.2 Personal history of diseases of the blood and blood-forming organs and certain disorders involving the immune mechanism; Z86.16 Personal history of COVID-19; Z90.49 Acquired absence of other specified parts of digestive tract; R94.31 Abnormal electrocardiogram [ECG] [EKG]
CPT/HCPCS: 36415; 80053; 81001; 83690; 85025; 93005; 96361; 96372; 96374; 99284; A9270; J0780; J1630; J7120

== ENCOUNTER 2024-12-15 00:45 | Day surgery (SDC) | payer BC, SELFPAY ==
[2024-12-04 12:18] VITALS: BMI 22.5
--- NOTE | 2024-12-04 12:19 | PC.NURSE ---
Report to the Outpatient Waiting Room, entrance under the green pavilion located off [facility], at time _1030_ on date _[id number]_. Planned Procedure Time: _1230_.? Time changes happen often and if your time is changed the preop area will call you the afternoon before. - You and your visitor will be asked to self-screen and do not enter if you have any COVID symptoms. Please call surgeon if you need to reschedule. - A mask is optional within the hospital at this time. Patients may have clear liquids (water, carbonated beverages, clear teas, apple juice) until 3 hours prior to surgery with a maximum of 20 ounces. - No food from midnight until time of surgery and no smoking, or chewing tobacco (or any form of nicotine). No chewing gum, candy or mints. Take only the following medications with a SIP of water on the morning of surgery: ___Zofran if needed.____ DO NOT STOP ANY OF YOUR OTHER PRESCRIPTION MEDICATIONS PRIOR TO SURGERY EXCEPT THE FOLLOWING Hold all vitamins and supplements for 3 days per anesthesiologist. Medications to discontinue per physician Date to take last dose Please no make-up, nail khmer, hairspray, perfume, deodorant, or body powder the day of surgery.? No jewelry (including any body piercings) or valuables the day of surgery, leave them at home.? Please take a shower or bath the night before, or the morning of, surgery with an antibacterial soap.? Wear comfortable, loose fitting clothing.? - Jewelry must be removed prior to entering the operating room.? Rings and piercings that are not removed may be cut off. - The hospital will not accept responsibility for valuables.? - Please leave all valuables, including medications, at home the day of surgery. If you are going home after surgery, a licensed tow truck driver must drive you home.? - NO public transportation without another adult if you receive anesthesia. - We recommend that an adult stay with you for 24 hours following discharge. - We also recommend that you do not drive, make important decision, drink alcoholic beverages, or take any drugs that were not prescribed by your health care provider for at least 24 hours after your discharge time. Follow any additional instructions given to you from your surgeon. Telephone instructions given to __Jayna___and asked if any additional questions and then verbalized understanding. Patient advised to call surgeon office or pre surgery nurse liaison [phone] if any additional questions.
--- NOTE | 2024-12-14 09:53 | PM.IMHP ---
H&P: HPI History of Present Illness Date/Time: 12/14/24 09:53 Chief Complaint: AUB Narrative: Jayna is a 44yo G0, who presents for AUB. She reports this summer she was having multiple periods a month. In the fall it kind of leveled off, but this winter, she started having multiple periods a month. She reports she would stop for one week, then restart for a week. She was needing to change a large pad every 3 hours. She has a h/o irregular periods in the past and bled herself down to hgb of 6; but returned to 9 after using the patch and taking iron. She has never been sexually active. She denies any hot flashes, night sweats. But she has noticed an increase in her mood changes/decreased concentration. She has also noticed a significant increase in her facial hair. She does have pelvic pains when she's on her cycle. She denies any overt symptoms of anemia except fatigue. She had normal TSH and CBC 08/2024. She has a h/o normal pap smear 11/2020 (reports it was horribly painful and cannot go through another pelvic exam). CONSERVATION OR HERITAGE ARCHITECT US 11/2024 was normal. PCOS w/u 10/2024 was negative (only mildly elevated DHEA-S) [facility] Past Medical History Medical History (Updated 11/11/24 @ 00:00 by Background Daemon) Anxiety Depression COVID-19 Scoliosis Anemia Arthritis Allergic rhinitis due to pollen Palpitations with regular cardiac rhythm SVT (supraventricular tachycardia) History of atrial fibrillation Surgical History Surgical History History of cardiac radiofrequency ablation 2019 Normal colonoscopy Aston teeth removed H/O colectomy History of cholecystectomy (~2010) Family History Family History Mother Hypertension Family history of elevated blood lipids Family history of diabetes mellitus in first degree relative Diabetes mellitus Family history of congestive heart failure Heart problem Kidney disease Hyperlipemia Heart disease Family history of coronary artery disease Family history of glaucoma Father Family history of diabetes mellitus in first degree relative Hypertension Cerebrovascular accident Diabetes mellitus Heart problem Hyperlipemia Grandparent Family history of malignant neoplasm of urinary bladder Family history of congestive heart failure Heart disease Family history of coronary artery disease Diabetes mellitus Hypertension Anxiety and depression Sibling Skin cancer Hypertension Social History Social History (Updated 10/16/24 @ 08:08 by Meggan Donaldson MA) Social History: Living alone. Working. Smoking status: Never smoker Alcohol intake: never Substance use: never Substance use type: does not use Do You Feel Safe in your Home?: Yes Lack of Transportation: No Lack of Food: Never True Current Housing: I Have Housing Concerned About Future Housing: No Difficulty Paying Gas/Electric Bills: No Difficulty Paying for Meds: No Currently Unemployed: No Education: Trade/Vocational Certificate Difficulty w/ Childcare or Family Care: No Living arrangements: with family Occupation/Education: occupation Additional occupation/education comments: Works at [employer] Gender identity (if verbalized by the patient): Female Sexual Orientation (if Verbalized by the Patient): Straight or Heterosexual Spiritual care concerns: No Meds Home Medications and Allergies Home Medications ?Medication ?Instructions ?Recorded ?Confirmed ?Type trazodone 50 mg tablet 50 mg PO QHS PRN insomnia #30 tabs 06/18/24 12/04/24 Rx ondansetron 4 mg disintegrating 4 mg PO Q6H PRN nausea and 11/10/24 12/04/24 Rx tablet vomiting #14 tabs Allergies Allergy/AdvReac Type Severity Reaction Status Date / Time No Known Allergies Allergy Verified 12/04/24 12:08 Assessment and Plan Assessment and plan (1) Menorrhagia: Qualifiers: Menorrhagia type: with irregular cycle Qualified Code(s): N92.1 - Excessive and frequent menstruation with irregular cycle Code(s): N92.0 - Excessive and frequent menstruation with regular cycle Status: Acute (2) Irregular menstrual cycle: Code(s): N92.6 - Irregular menstruation, unspecified Status: Acute Plan - Concerned for shy-menopause, but recommend endometrial sampling due to her significant AUB - Proceed with HSC/D&C, will also collect pap smear under anesthesia - Labs/US reassuring - discussed doing patch again (continuously) after sampling to help with AUB/mood/hair growth
--- OUTSIDE RECORDS SUMMARY | 2024-12-15 00:47 | XMS_ITS | Continuity of Care Document ---
Author Organization [facility] Address [address] [place] [address] [place] [address] Phone Care Team Providers Care Market Intelligence Consultant Name Role Phone Menjivar OD, Bereket Unavailable [...] Diagnoses Date Provider Providers Copied on Encounter [facility], [address] [place] [address] [address], [place], [place], [id number], tel:[phone] [facility] No Information Apr-2 6-201 0 Menjivar OD Bereket. [address] , [address], [place], [place], [facility], . tel:[phone] Office/outpat ient Visit, Est [facility], [address] [place] [address] [address], [place], [place], [id number], [place] tel:[phone] [facility] No Information Apr-2 0-201 0 Menjivar OD Bereket. [address] , [address], [place], [place], [facility], . tel:[phone] [facility], [address] [place] [address] [address], [place], [place], [id number], [place] tel:[phone] [facility] No Information Apr-1 3-201 0 Menjivar OD Bereket. [address] [facility] , [address], [place], [place], [facility], . tel:[phone] [facility], [address] [place] [address] [address], [place], [place], [id number], tel:[phone] [facility] No Information Apr-1 2-201 0 Menjivar OD Bereket. [address] [facility] , [address], [place], [place], [facility], [place]. tel:[phone] [facility], [address] [place] [address] [address], [place], [place], [id number], tel:[phone] [facility] No Information Apr-0 6-201 0 Menjivar OD Bereket. [address] [facility] , [address], [place], [place], [facility], . tel:[phone] [facility], [address] [place] [address] [address], [place], [place], [id number], tel:[phone] [facility] No Information Mar-3 0-201 0 Menjivar OD Bereket. [address] [facility] , [address], [place], [place], [facility], . tel:[phone] [facility], [address] [place] [address] [address], [place], [place], [id number], tel:[phone] [facility] No Information 4-201 0 Menjivar OD Bereket. [address] [facility] , [address], [place], [place], [facility], . tel:[phone] Family History Family Member Type Diagnosis Age [...]
--- OUTSIDE RECORDS SUMMARY | 2024-12-15 00:47 | XMS_ITS | Clinical Summary ---
Author Organization [facility] Address [address] [place] [address] Care Team Providers Care Vascular Radiologist Name Role Phone Riya Cormier MD Primary Care Provider [phone] Allergies No known active allergies Medications busPIRone [...] therapy. She previously discussed ablation with her suspect artist, and is interested in this route. We [...] 3:47 PM CDT): The patient has a SCH3PA7-WGVg score of 1 - for female gender. 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 Gender Identity Not on file Sexual Orientation Not on file Obstetrics History Last Filed Vital Signs Vital Sign Reading Time Taken Comments Blood Pressure 95/71 03/09/2022 2:08 PM CDT Pulse 71 03/09/2022 2:08 PM CDT Temperature 36.9 C (98.4 F) 08/12/2020 8:40 AM BEAM HOUSE INSPECTOR Respiratory Rate 18 03/09/2022 2:08 PM CDT Oxygen Saturation 100% 08/12/2020 8:40 AM BEAM HOUSE INSPECTOR Inhaled Oxygen Concentration - - Weight 69.4 [...] this topic Medical Devices Implanted Type Area Cake Icer Device Identifier Shelf Expiration Date Model / Serial / Lot [employer] [id number] Vascade 6/7fr Bioabsorbable Vascular System Compression Collagen - [id number] - [id number] Implanted:Qty: 1 on 08/11/2020 by Josh Tyler MD at [facility] [employer] 06/15/2022 700-580I-0 5U / [id number] / [id number] [employer] [id number] System 6-12fr Mvp Venous Closure Vascade - [id number] - [id number] Implanted:Qty: 1 on 08/11/2020 by Josh Tyler MD at [facility] [employer] 06/28/2022 800-612C-1 0U / [id number] [id number] / [id number] [employer] [id number] System 6-12fr Mvp Venous Closure Vascade - [id number] - [id number] Implanted:Qty: 1 on 08/11/2020 by Josh Tyler MD at [facility] [employer] 06/28/2022 800-612C-1 0U / [id number] 7A / [id number] 7A Insurance [facility] H[facility]/PPO Address: [address] [address] Care Teams Vascular Radiologist Relationship Specialty Start Date End Date Riya Cormier MD PCP - General Family Medicine 05/22/19
--- OUTSIDE RECORDS SUMMARY | 2024-12-15 00:47 | XMS_ITS | Referral Summary ---
Author Organization [facility] Address [address] [place] [address] Care Team Providers Care Tester Operator Helper Name Role Phone Riya Cormier MD Primary Care Provider [phone] Allergies No known active allergies Medications busPIRone [...] therapy. She previously discussed ablation with her strawhat sizer, and is interested in this route. We [...] 3:47 PM CDT): The patient has a TGE0UH0-UXHs score of 1 - for female gender. [...] on file Legal Sex Female 4:11 AM SILK PRINTER Gender Identity Not on file Sexual Orientation Not on file Last Filed Vital Signs Vital Sign Reading Time Taken Comments Blood Pressure 95/71 03/09/2022 2:08 PM CDT Pulse 71 03/09/2022 2:08 PM CDT Temperature 36.9 C (98.4 F) 08/12/2020 8:40 AM SILK PRINTER Respiratory Rate 18 03/09/2022 2:08 PM CDT Oxygen Saturation 100% 08/12/2020 8:40 AM SILK PRINTER Inhaled Oxygen Concentration - - Weight 69.4 kg (153 lb) 03/09/2022 2:08 PM CDT Height 172.7 cm (5' 8 ) 03/09/2022 2:08 PM CDT Body Mass Index 23.26 03/09/2022 2:08 PM CDT Plan of Treatment Not on file Medical Devices Implanted Type Area Dairy Equipment Specialist Device Identifier Shelf Expiration Date Model / Serial / Lot [employer] [id number] Vascade 6/7fr Bioabsorbable Vascular System Compression Collagen - [id number] - [id number] Implanted:Qty: 1 on 08/11/2020 by Josh Tyler MD at [facility] [employer] 06/15/2022 700-580I-0 5U / [id number] / [id number] [employer] [id number] System 6-12fr Mvp Venous Closure Vascade - [id number] - [id number] Implanted:Qty: 1 on 08/11/2020 by Josh Tyler MD at [facility] [employer] [facility] 06/28/2022 800-612C-1 0U / [id number] 7A / [id number] [employer] [id number] System 6-12fr Mvp Venous Closure Vascade - [id number] - [id number] Implanted:Qty: 1 [facility]11/[facility] 06/28/2022 800-612C-1 0U / [id number] 7A / [id number] [address]A [place] [place] [address] [facility] H[facility]PP[facility] Address: [address] [address] [place] [address] Care Teams Tester Operator Helper Relationship Specialty Start Date End Date Riya Cormier MD PCP - General Family Medicine 05/22/19
--- NOTE | 2024-12-15 07:26 | WPDHPUPDATE1 ---
History and Physical Update Update Date/Time: 12/15/24 07:26 History and Physical has been reviewed, including an updated exam of the patient. There are NO changes in the patient's condition. Risks, benefits, and alternatives have been discussed and questions answered. Patient agrees to proceed with HSC/D&C, will also collect pap smear under anesthesia .
[2024-12-15] MEDS: LACTATED RINGERS 1,000 ML 30 ML IV CONT (10:30)
[2024-12-15 11:01] VITALS: BP 111/71; PULSE 70; RESP 16; TEMP 36.7; O2SAT 98
--- NOTE | 2024-12-15 11:03 | WPDANESEPPF ---
Anes - Initial Pre Proc Eval Procedure: Operation Date: 12/15/24 12:30 Proposed Procedures p Hysteroscopy Dilation and Curettage with Pap Smear - Peace Sampson MD Date/Time: 12/15/24 11:03 Surgeon: Peace Sampson MD Pre Op Diagnosis: abnormal uterine bleeding Patient Data Age: 44 Gender: F Height: 1.73 m Weight: 67.3 kg Allergies Allergy/AdvReac Type Severity Reaction Status Date / Time No Known Allergies Allergy Verified 12/15/24 11:00 Home Medications ?Medication ?Instructions ?Recorded ?Confirmed ?Type trazodone 50 mg tablet 50 mg PO QHS PRN insomnia #30 tabs 06/18/24 12/04/24 Rx ondansetron 4 mg disintegrating 4 mg PO Q6H PRN nausea and 11/10/24 12/04/24 Rx tablet vomiting #14 tabs Patient hx anesthesia problems: none Family hx anesthesia problems: none Results Review: All pre-operative results and documents have been reviewed as part of the pre-operative evaluation. [facility] Past Medical History Medical History Anxiety Depression COVID-19 Scoliosis Anemia Arthritis Allergic rhinitis due to pollen Palpitations with regular cardiac rhythm SVT (supraventricular tachycardia) History of atrial fibrillation Surgical History Surgical History History of cardiac radiofrequency ablation 2020 Normal colonoscopy [place] teeth removed H/O colectomy History of cholecystectomy (~2010) Family History Family History Mother Hypertension Family history of elevated blood lipids Family history of diabetes mellitus in first degree relative Diabetes mellitus Family history of congestive heart failure Heart problem Kidney disease Hyperlipemia Heart disease Family history of coronary artery disease Family history of glaucoma Father Family history of diabetes mellitus in first degree relative Hypertension Cerebrovascular accident Diabetes mellitus Heart problem Hyperlipemia Grandparent Family history of malignant neoplasm of urinary bladder Family history of congestive heart failure Heart disease Family history of coronary artery disease Diabetes mellitus Hypertension Anxiety and depression Sibling Skin cancer Hypertension Social History Social History Social History: Living alone. Working. 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 Gender identity (if verbalized by the patient): Female Sexual Orientation (if Verbalized by the Patient): Straight or Heterosexual Spiritual care concerns: No Anes - Eval Final PreProcedure Day of Procedure 12/15/24 11:03 Patient weight: normal Heart: regular rate and rhythm Lungs: clear to auscultation Neurological: alert and oriented Last oral intake: >/= 8 hours ASA classification: III Emergent: no Anesthetic plan: proceed Anesthesia type and monitoring: general GIVS and standard monitoring Results Review: All pre-operative results and documents have been reviewed as part of the pre-operative evaluation. Informed Consent: The patient's anesthetic plan and its attendant risks and benefits were discussed with the patient/family/POA. Questions were solicited and answers provided to the satisfaction of the patient/family/POA.
[2024-12-15] MEDS: ACETAMINOPHEN ELIXIR 325 MG/10.15 ML UDC 1008 MG PO (12:05)
[2024-12-15 13:16] VITALS: BP 103/62; PULSE 70; RESP 16; O2SAT 100
--- NOTE | 2024-12-15 13:24 | W.PM.PROC2 ---
Procedure Note - Detailed Date of Procedure 12/15/24 Pre-op Diagnosis abnormal uterine bleeding Post-op Diagnosis Same Procedure Performed Exam under anesthesia; pap smear. Hysteroscopy with D&C. Surgeon Peace Sampson MD Anesthesia MAC Findings Hymen intact; pintpoint cervix. Pap smear collected; small amount of vaginal bleeding noted. Normal uterine cavity; thickened tissue throughout; bilateral tubal ostia visualized. Good hemostasis at end of case. Fluid deficit: 100cc Description of Procedure Jayna was taken to the operating room where she was placed under sedation without complications. She was placed in the dorsal lithotomy position with her legs in low Oumar stirrups. A time-out was performed and no perioperative antibiotics were indicated. Using a disposable speculum, a pap smear was obtained. She was not tolerating the speculum exam, therefore, her sedation was deepened and LMA was placed. She was then prepped and draped in the usual sterile fashion. A bivalve speculum was placed within the vagina where the cervix was easily identified. The anterior lip of the cervix was grasped with a single-tooth tenaculum. The cervix was then serially dilated to allow for the hysteroscope. The hysteroscope was advanced into the uterine cavity with the above findings noted. A curettage was then performed until a good uterine cry was felt throughout the uterus and a good sample was obtained. The hysteroscope was once again advanced into the cavity and it was noted that all areas had been sampled and were noted to be thin. Good hemostasis was noted. All instruments were removed from the vagina. Sponge, lap, instrument, and needle counts were correct at the end of the procedure. Patient was awoken from anesthesia and taken to recovery with plans of same-day discharge home. Estimated Blood Loss 10 IV Fluids 800 Pathology Yes (endometrial curettings) Complications No immediate complications Condition Stable Disposition Same day [facility] Billing Surgery - Charge Forward: Surgery Billing
[2024-12-15 13:45] VITALS: BP 112/75; PULSE 65
[2024-12-15 14:15] VITALS: BP 120/64; PULSE 58
[2024-12-15] MEDS: KETOROLAC 30 MG/ML VIAL (*BKC) IV PUSH (14:15)
== END 2024-12-15 14:40 | disposition home or self-care (01) ==
PROVIDERS: PCP Family Medicine; Visit Provider Obstetrics & Gynecology
PROC: 0U5B8ZZ Destruction of Endometrium, Via Natural or Artificial Opening Endoscopic (ICD-10-PCS; CPT 58563; principal; 2024-12-15 12:30)
DX: N92.1 Excessive and frequent menstruation with irregular cycle (principal)
CPT/HCPCS: 58558; 88305; A9270; J1885; J2003; J2250; J2405; J2704; J3010; J7120